=== PATIENT | female | born 1950 | race Asian ===

== ENCOUNTER → 2018-01-31 | Outpatient (CLI) | payer OTHER | END | disposition home or self-care (01) | LOC: CFH 08:42 | PROVIDERS: ATTEND Student in an Organized Health Care Education/Training Program | DX: Z12.31 Encounter for screening mammogram for malignant neoplasm of breast (principal); M85.80 Other specified disorders of bone density and structure, unspecified site; M81.0 Age-related osteoporosis without current pathological fracture; Z78.0 Asymptomatic menopausal state | CPT/HCPCS: 77080; 77067 ==

== ENCOUNTER → 2018-09-20 | Outpatient (CLI) | payer MEDICARE ==
[~2018-09-20] MED LIST: REGADENOSON 0.4 MG/5 ML SYRINGE ONE
== END | disposition home or self-care (01) ==
LOC: CFH 11:25
PROVIDERS: ATTEND Student in an Organized Health Care Education/Training Program
DX: R07.89 Other chest pain (principal); R00.1 Bradycardia, unspecified; I10 Essential (primary) hypertension
CPT/HCPCS: 78452; 93017; A9502; J2785

== ENCOUNTER 2018-10-11 11:51 | Day surgery (SDC) | payer MEDICARE ==
[~2018-10-11] VITALS: Ht 147.3 cm; Wt 56.0 kg
[2018-10-11] MEDS ORDERED: IRBE75TA10 PO (12:52)
[2018-10-11] MEDS ORDERED: BRIM10DR15 OP (12:52)
[2018-10-11] MEDS ORDERED: TIMO5DRO33 OP (12:52)
[2018-10-11] MEDS ORDERED: MIDAZOLAM 1 MG/ML, 5ML ONE (13:14)
[2018-10-11] MEDS ORDERED: FENTANYL PF 100 MCG/2ML ONE (13:14)
[2018-10-11] MEDS ORDERED: BIVALIRUDIN 250 MG ONE (13:15)
[2018-10-11] MEDS ORDERED: HEPARIN 1,000 UNITS/ML, 10ML ONE (13:15)
[2018-10-11] MEDS ORDERED: VERAPAMIL 2.5 MG/ML, 2ML ONE (13:15)
[2018-10-11] MEDS ORDERED: TICAGRELOR 90 MG TABLET ONE (13:15)
[2018-10-11] MEDS ORDERED: LIDOCAINE 2%, 20ML ONE (13:15)
[2018-10-11] MEDS ORDERED: ACETAMINOPHEN 325 MG TABLET PO PRN (14:00)
[2018-10-11] MEDS ORDERED: TEMPLATE NON-FORMULARY MED. (Timolol Maleate 1 DROP) OP SCH (21:00)
[2018-10-12] MEDS ORDERED: IRBESARTAN 75 MG PO SCH (09:00)
== END 2018-10-11 16:17 | disposition home or self-care (01) ==
LOC: CACL 11:51
PROVIDERS: ATTEND Internal Medicine Cardiovascular Disease
DX: I25.10 Atherosclerotic heart disease of native coronary artery without angina pectoris (principal); I10 Essential (primary) hypertension; Z88.0 Allergy status to penicillin
CPT/HCPCS: 93458; 99156; C1769; C1894; J1644; J2250; J3010; Q9967; J0583

== ENCOUNTER → 2019-05-19 | Outpatient (CLI) | payer MEDICARE ==
[~2019-05-19] MED LIST changes: +BRIM10DR15 OP; +IRBE75TA10 PO; -REGADENOSON 0.4 MG/5 ML SYRINGE ONE; +TIMO5DRO33 OP
== END | disposition home or self-care (01) ==
LOC: CFH 11:49
PROVIDERS: ATTEND Internal Medicine Cardiovascular Disease
DX: E04.2 Nontoxic multinodular goiter (principal)
CPT/HCPCS: 76536

== ENCOUNTER → 2019-08-02 | Outpatient (CLI) | payer MEDICARE ==
[~2019-08-02] MED LIST changes: -IRBE75TA10 PO; +IRBE75TA6 PO; +LIDOCAINE 1%, 10ML ONE
== END | disposition home or self-care (01) ==
LOC: RAD 12:25
PROVIDERS: ATTEND Internal Medicine Cardiovascular Disease
DX: E04.2 Nontoxic multinodular goiter (principal)
CPT/HCPCS: 10005; 88172; 88173